=== PATIENT | female | born 1995 | race Caucasian/White ===

== ENCOUNTER 2021-10-09 00:26 | Emergency (ER) | payer BC ==
[2021-10-09] MEDS ORDERED: LORazepam 1 MG Tab PO ONE (01:39)
[2021-10-09] MEDS ORDERED: Ondansetron 4 MG Tab.DIS PO ONE (01:39)
== END 2021-10-09 01:55 | disposition home or self-care (01) ==
LOC: JD.ED 00:26
DX: F41.0 Panic disorder [episodic paroxysmal anxiety] (principal); E66.9 Obesity, unspecified; Z68.32 Body mass index [BMI] 32.0-32.9, adult
CPT/HCPCS: 99283; A9270